=== PATIENT | female | born 2000 | race Two or more races ===

== ENCOUNTER 2025-02-04 11:33 | Emergency (ER) | payer MEDICAID ==
[~2025-02-04] VITALS: Ht 154.9 cm; Wt 63.5 kg
[2025-02-04 12:19] LABS: BASOPHILS % (AUTO) 0.3 % (0.0-2.0); EOSINOPHILS # (AUTO) 0.1 K/uL (0.0-0.7); EOSINOPHILS % (AUTO) 1.6 % (0.0-6.0); HEMATOCRIT 35 % (33-45); HEMOGLOBIN 11.9 g/dL (11.5-14.8); LYMPHOCYTES # (AUTO) 2.3 K/uL (0.8-4.8); LYMPHOCYTES % (AUTO) 34.4 % (20.0-44.0); MEAN CORPUSCULAR HEMOGLOBIN 32 PG (26.0-33.0); MEAN CORPUSCULAR HGB CONC 34 g/dl (31.0-36.0); MEAN CORPUSCULAR VOLUME 92 fL (82-100); MONOCYTES # (AUTO) 0.4 K/uL (0.1-1.30); MONOCYTES % (AUTO) 5.7 % (2.0-12.0); NEUTROPHILS # (AUTO) 3.9 K/uL (1.8-8.9); PLATELET COUNT (AUTO) 291 K/uL (150-450); RED BLOOD CELL COUNT(AUTO) 3.75 MIL/uL (4.0-5.2); WHITE BLOOD COUNT (AUTO) 6.7 K/uL (4.3-11.0)
[2025-02-04 12:26] LABS: CALCIUM, SERUM 8.5 mg/dL (8.5-10.1); CREATININE 0.6 mg/dL (0.6-1.3); POTASSIUM 4.2 mmol/L (3.5-5.1)
[2025-02-04 12:32] LABS: ALBUMIN 3.7 g/dL (3.4-5.0); BILIRUBIN,DIRECT 0.1 mg/dL (0.0-0.2); BILIRUBIN,TOTAL 0.6 mg/dL (0.2-1.0); TOTAL PROTEIN, SERUM 7.3 g/dL (6.4-8.2)
[2025-02-04] MEDS ORDERED: PANTOPRAZOLE 40 MG VIAL ONE (13:03)
[2025-02-04] MEDS ORDERED: SUCRALFATE 1 G/10 ML UDC ONE (13:03)
[2025-02-04] MEDS ORDERED: METOCLOPRAMIDE HCL 10 MG/2 ML VIAL ONE (13:03)
[2025-02-04] MEDS ORDERED: KETOROLAC TROMETHAMINE 15 MG/ML VIAL ONE (13:03)
[2025-02-04] MEDS ORDERED: FAMOTIDINE/PF INJ 20 MG/2 ML VIAL IV ONE (13:03)
[2025-02-04] MEDS: PANTOPRAZOLE 40 MG VIAL IV ONE (13:20)
[2025-02-04] MEDS: FAMOTIDINE/PF INJ 20 MG/2 ML VIAL IV ONE (13:20)
[2025-02-04] MEDS: IV NS 0.9% 1,000 ML BAG IV ONE (13:20)
[2025-02-04] MEDS: METOCLOPRAMIDE HCL 10 MG/2 ML VIAL IV ONE (13:21)
[2025-02-04] MEDS: SUCRALFATE 1 G TABLET PO ONE (13:21)
[2025-02-04] MEDS: KETOROLAC TROMETHAMINE 15 MG/ML VIAL IV ONE (13:21)
[2025-02-04] MEDS ORDERED: PANT40TA49 PO (13:30)
[2025-02-04] MEDS ORDERED: ONDA4TAB5 PO (13:30)
[2025-02-04] MEDS ORDERED: SUCR1TAB31 PO (13:30)
[2025-02-04] MEDS ORDERED: FAMO20TA80 PO (13:30)
[2025-02-04 14:04] VITALS: BP 110/65; TEMP 97.6; O2SAT 99
== END 2025-02-04 14:06 | disposition home or self-care (01) ==
LOC: ER 11:47
DX: K29.70 Gastritis, unspecified, without bleeding (principal); R11.0 Nausea
CPT/HCPCS: 99284; 96374; 96375; 96361; 85025; 80048; 83690; 80076; 36415; J1885; J1308; J2765; J7030; J2470